=== PATIENT | female | born 1990 | race Caucasian/White ===

== ENCOUNTER 2023-08-10 13:46 | Emergency (ER) | payer OTHER ==
--- NOTE | 2023-08-10 13:49 | ERPHSYRPT ---
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 She can bear weight but it hurts to do so. She was moving a patient bed when this occurred. Method of Injury: direct blow Occurred: just prior to arrival Quality: constant, aching Severity of Pain-Max: mild Severity of Pain-Current: mild Lower Extremities Pain: foot: right, ankle: right Modifying Factors: Improves With: movement Associated Symptoms: other (Urged to bear weight but can do so) Allergies/Adverse Reactions: No Known Drug Allergies Allergy (Unverified 08/10/23 13:51) Home Medications: Escitalopram Oxalate [Lexapro] 1 tab PO DAILY 08/10/23 [History] Travel Risk - International Travel Have you traveled outside of the country in past 3 weeks: No - Emerging Infectious Disease Are you exhibiting symptoms associated with any current EIDs: No - Review of Systems Constitutional: No Symptoms Eyes: No Symptoms Ears, Nose, & Throat: No Symptoms Respiratory: No Symptoms Cardiac: No Symptoms Abdominal/Gastrointestinal: No Symptoms Genitourinary Symptoms: No Symptoms Musculoskeletal: Injury (Right foot and ankle) Skin: No Symptoms Neurological: No Symptoms Psychological: No Symptoms Endocrine: No Symptoms Hematologic/Lymphatic: No Symptoms Immunological/Allergic: No Symptoms All Other Systems: Reviewed and Negative - Past Medical History Pertinent Past Medical History: Yes - Nursing Vital Signs Nursing Vital Signs: Initial Vital Signs Temperature 97.6 F 08/10/23 13:53 Pulse Rate 86 08/10/23 13:53 Respiratory Rate 18 08/10/23 13:53 Blood Pressure 131/90 08/10/23 13:53 O2 Sat by Pulse Oximetry 97 08/10/23 13:53 Pain Scale Pain Intensity 6 - Physical Exam General Appearance: no apparent distress, alert, anxiety Eyes, Ears, Nose, Throat Exam: normal ENT inspection, moist mucous membranes Neck Exam: normal inspection, non-tender, supple, full range of motion Cardiovascular/Respiratory Exam: chest non-tender, no respiratory distress Gastrointestinal/Abdominal Exam: non-tender Back Exam: normal inspection Hips Exam: bilateral: non-tender, normal inspection, normal range of motion, no evidence of injury Legs Exam: bilateral leg: non-tender, normal inspection, normal range of motion, no evidence of injury Knees Exam: bilateral knee: non-tender, normal inspection, normal range of motion, no evidence of injury Ankle Exam: right ankle: bone tenderness, soft tissue tenderness (Dorsal aspect), left ankle: non-tender, normal inspection, normal range of motion, no evidence of injury Foot Exam: right foot: bone tenderness ( dorsal aspect), soft tissue tenderness (Dorsal aspect), left foot: non-tender, normal inspection, normal range of motion, no evidence of injury Neuro/Tendon Exam: normal sensation, normal motor functions, normal tendon functions, responds to pain, no evidence tendon injury Mental Status Exam: alert, oriented x 3, cooperative Skin Exam: normal color, warm, dry SpO2 Interpretation: normal O2 Delivery: Room Air - Course Nursing assessment & vital signs reviewed: Yes Ordered Tests: Active Orders 24 hr Category Date Time Status ANKLE (3 VIEWS) Stat Exams 08/10/23 13:57 Completed FOOT (MINIMUM 3 VIEWS) Stat Exams 08/10/23 13:53 Completed - Progress Progress: pain not gone completely, re-examined Progress Note: 08/10/23 14:10 My medical decision making and the assignment of low complexity to this patient's medical issue today is based on review of the patient's past medical history, review of the patient's medication list, review patient drug allergy list, history present illness and physical findings on examination. The workup in this patient includes x-ray of the patient's right foot and right ankle 08/10/23 14:25 Differential diagnosis includes contusion of right foot and ankle, dislocation of right foot and ankle, fracture of right foot and ankle. The x-ray of the right foot and right ankle were interpreted by the radiologist and I reviewed the impression. The impression of the x-rays of the right foot and right ankle both show no acute fracture or dislocation. Counseled pt/family regarding: diagnosis, need for follow-up, rad results Medical Desision Making - Diagnostic Testing Diagnostic test were ordered, analyzed, and reviewed by me: Yes Radiological Interpretation: Reviewed by me, Teleradiologist Report - Risk of complications Minimal Risk: Minimal risk of morbidity - Departure Departure Disposition: Home Clinical Impression: Injury of right foot, Injury of right ankle Condition: Stable Critical Care Time: No Referrals: CLARITZA ASKEW MD [Primary Care Provider] - Follow up/PCP as directed Additional Instructions: Ice pack to tender area 3 times a day for the next 48 hours. Use Tylenol and ibuprofen for pain control. Follow-up with your primary care provider, or podiatry, Dr. Viveros, for pain that persist beyond 72 hours with treatment.
[2023-08-10 14:02] VITALS: PULSE 86; RESP 18; TEMP 97.6
--- NOTE | 2023-08-10 14:13 | XRAY ---
Indication: Pain following injury. Comparison: None 3 nonweightbearing views right foot demonstrates small plantar heel spur. No other bony, articular, or soft tissue abnormalities.
--- NOTE | 2023-08-10 14:21 | XRAY ---
Indication: Pain following injury. Comparison: None 3 view right ankle demonstrates small plantar heel spur. No other bony, articular, or soft tissue abnormalities.
[2023-08-10 15:09] VITALS: BP 116/69; O2SAT 99
== END 2023-08-10 15:09 | disposition home or self-care (01) ==
LOC: ED 13:46
DX: S99.921A Unspecified injury of right foot, initial encounter (principal); S99.911A Unspecified injury of right ankle, initial encounter; X58.XXXA Exposure to other specified factors, initial encounter; Y92.239 Unspecified place in hospital as the place of occurrence of the external cause; Y99.0 Civilian activity done for income or pay; Z79.899 Other long term (current) drug therapy
CPT/HCPCS: 73610; 73630; 99282